=== PATIENT | female | born 2000 | race Caucasian/White ===

== ENCOUNTER 2025-09-05 23:51 | Emergency (ER) | payer OTHER ==
[~2025-09-05] VITALS: Ht 154.9 cm; Wt 54.5 kg
[2025-09-06 00:01] VITALS: TEMP 99
[2025-09-06] MEDS ORDERED: SULF1TAB94 PO (01:46)
[2025-09-06] MEDS ORDERED: CEPH-558 PO (01:46)
[2025-09-06] MEDS: CefTRIAXone SODIUM 1 GM/VIAL IM ONE (01:53)
[2025-09-06] MEDS: LIDOCAINE/PF 1% 2 ML VIAL IM ONE (01:53)
[2025-09-06] MEDS: SULFAMETHOX/TRIMETH DS 800-160 MG/TABLET PO ONE (01:54)
[2025-09-06] MEDS: ACETAMINOPHEN 500 MG TABLET PO ONE (01:55)
[2025-09-06 02:00] VITALS: BP 109/68; PULSE 78; RESP 16; O2SAT 100
== END 2025-09-06 02:08 | disposition home or self-care (01) ==
LOC: EMS 23:54
DX: L03.317 Cellulitis of buttock (principal); F12.90 Cannabis use, unspecified, uncomplicated; Z79.899 Other long term (current) drug therapy
CPT/HCPCS: 99283; 96372; J0696; J3490

== ENCOUNTER 2025-09-07 12:03 | Emergency (ER) | payer OTHER ==
[~2025-09-07] VITALS: Ht 154.9 cm; Wt 54.5 kg
[~2025-09-07 12:03] MED LIST: CEPH-558 PO; SULF1TAB94 PO
[2025-09-07 12:07] VITALS: TEMP 98.2
[2025-09-07] MEDS: BACITRACIN 28 GM OINTMENT TP ONE (14:09)
[2025-09-07 14:10] VITALS: BP 110/58; PULSE 72; RESP 18; O2SAT 99
== END 2025-09-07 14:11 | disposition home or self-care (01) ==
LOC: EMS 12:03
DX: L03.317 Cellulitis of buttock (principal); F12.90 Cannabis use, unspecified, uncomplicated; Z79.899 Other long term (current) drug therapy
CPT/HCPCS: 99284; Z7502; Z7610